=== PATIENT | female | born 1995 | race Caucasian/White ===

== ENCOUNTER 2017-09-22 23:15 | Emergency (ER) | payer SELFPAY ==
[~2017-09-22] VITALS: Ht 167.6 cm; Wt 86.2 kg
[2017-09-22] MEDS ORDERED: AMOX250C PO (23:28)
[2017-09-22] MEDS ORDERED: NS IV 1000 ML 1,000 ML IV SCH (23:28)
[2017-09-22] MEDS ORDERED: PROM5SYR PO (23:28)
[2017-09-22] MEDS ORDERED: ONDANSETRON 4 MG/2 ML (SDV) Z0FRAN IVP ONE (23:30)
[2017-09-22] MEDS ORDERED: FAMOTIDINE 20MG/2ML IV (PEPCID) IVP ONE (23:30)
[2017-09-22] MEDS ORDERED: fentaNYL INJECTION 100 MCG/2 ML AMP IVP ONE (23:30)
[2017-09-22 23:59] LABS: BILIRUBIN,URINE NEGATIVE (NEGATIVE); CLARITY,URINE SLIGHTLY CLOUDY; GLUCOSE, URINE (UA) NEGATIVE (NEGATIVE); KETONES,URINE 2+ (NEGATIVE); LEUKOCYTE ESTERASE ,URINE 2+ (NEGATIVE); NITRITE,URINE NEGATIVE (NEGATIVE); PH,URINE 5 (5-9); PROTEIN,URINE 2+ (NEGATIVE); UROBILINOGEN,URINE NORMAL (NORMAL)
[2017-09-23 00:02] LABS: BASOPHILS % (AUTO) 0 % (0-10); EOSINOPHILS % (AUTO) 0 % (0-10); HEMATOCRIT 49 % (35-52); HEMOGLOBIN 17.5 G/DL (11.5-16.0); LYMPHOCYTES # (AUTO) 0.7 X 10^3 (1.0-4.0); LYMPHOCYTES % (AUTO) 3 % (12-44); MEAN CORPUSCULAR HEMOGLOBIN 31 PG (25-34); MEAN CORPUSCULAR HGB CONC 36 G/DL (32-36); MEAN CORPUSCULAR VOLUME 87 FL (80-99); MEAN PLATELET VOLUME 10.1 FL (7.4-10.4); MONOCYTES % (AUTO) 4 % (0-12); NEUTROPHILS # (AUTO) 20.9 X 10^3 (1.8-7.8); NEUTROPHILS % (AUTO) 93 % (42-75); PLATELET COUNT 304 10^3/uL (130-400); RED BLOOD COUNT 5.62 10^6/uL (4.35-5.85); RED CELL DISTRIBUTION WIDTH 12.9 % (10.0-14.5); WHITE BLOOD COUNT 22.6 10^3/uL (4.3-11.0)
[2017-09-23 00:06] LABS: BACTERIA,URINE LARGE /HPF; COLOR,URINE YELLOW; HYALINE CASTS, URINE RARE /LPF; RBC,URINE RARE /HPF
[2017-09-23] MEDS ORDERED: PROMETHAZINE INJ 25 MG/ML (PHENERGAN) AMP IVP ONE (00:15)
[2017-09-23] MEDS ORDERED: RX-ONDANSETRON 4 MG ODT (ZOFRAN) PPK #4 SL STA (00:16)
[2017-09-23 00:17] LABS: BAND NEUTROPHILS 5 %; BASOPHILS % (MANUAL) 0 %; EOSINOPHILS % (MANUAL) 0 %; LYMPHOCYTES % (MANUAL) 2 %; MONOCYTES % (MANUAL) 3 %; NEUTROPHILS % (MANUAL) 90 %; TOXIC GRANULATION/VACUOLAZATIO 1+
[2017-09-23 00:33] LABS: ALANINE AMINOTRANSFERASE 18 U/L (0-55); ALBUMIN 4.9 GM/DL (3.2-4.5); ALKALINE PHOSPHATASE 89 U/L (40-136); BILIRUBIN,TOTAL 0.8 MG/DL (0.1-1.0); BUN/CREATININE RATIO 18; CALCIUM 10.2 MG/DL (8.5-10.1); CARBON DIOXIDE 19 MMOL/L (21-32); CHLORIDE 106 MMOL/L (98-107); CREATININE SERUM 1.13 MG/DL (0.60-1.30); GFR ESTIMATED > 60; GLUCOSE 139 MG/DL (70-105); LIPASE 5 U/L (8-78); POTASSIUM 4.5 MMOL/L (3.6-5.0); SODIUM 139 MMOL/L (135-145); TOTAL PROTEIN 8.1 GM/DL (6.4-8.2)
--- NOTE | 2017-09-23 00:41 | ED General ---
General Chief Complaint: Abdominal/GI Problems Stated Complaint: VOMITING Nursing Triage Note: nausea/vomitting Nursing Sepsis Screen: No Definite Risk Source of Information: Patient Exam Limitations: No Limitations History of Present Illness Date Seen by Provider: Sep 22, 2017 Time Seen by Provider: 23:24 Initial Comments Patient presents to the emergency room in apparent distress and very dramatic with vomiting and epigastric pain. She reports vomiting 5 hours. She has been afebrile but has had cold sweats. Diarrhea started while in the emergency room. She last tried to eat around 19:30. She has been treated for bronchitis with antibiotics, steroids, and promethazine. Patient is concerned the promethazine caused her symptoms. Allergies and Home Medications Allergies Coded Allergies: No Known Drug Allergies (Unverified , 09/22/17) Patient Home Medication List Home Medication List Reviewed: Yes Constitutional: no symptoms reported EENTM: no symptoms reported Respiratory: see HPI Cardiovascular: no symptoms reported Gastrointestinal: see HPI Genitourinary: no symptoms reported : No Musculoskeletal: no symptoms reported Skin: no symptoms reported Psychiatric/Neurological: No Symptoms Reported Hematologic/Lymphatic: No Symptoms Reported Past Pmvdqps-Pmknwe-Dyrycv Hx Patient Social History Alcohol Use: Denies Use Recreational Drug Use: No Smoking Status: Never a Smoker 2nd Hand Smoke Exposure: Yes Recent Foreign Travel: No Contact w/Someone Who Travel: No Recent Infectious Disease Expo: No Recent Hopitalizations: No Seasonal Allergies Seasonal Allergies: No Surgeries History of Surgeries: Yes (right shoulder) Surgeries: Orthopedic Respiratory History of Respiratory Disorde: No Cardiovascular History of Cardiac Disorders: No Neurological History of Neurological Disord: No Reproductive System : No Genitourinary History of Genitourinary Disor: No Gastrointestinal History of Gastrointestinal Di: No Musculoskeletal History of Musculoskeletal Dis: No Endocrine History of Endocrine Disorders: No HEENT History of HEENT Disorders: No Cancer History of Cancer: No Psychosocial History of Psychiatric Problem: No Integumentary History of Skin or Integumenta: No Blood Transfusions History of Blood Disorders: No Physical Exam Vital Signs Vital Signs - First Documented 09/22/17 23:20 Temp 97.2 Pulse 105 Resp 20 B/P (MAP) 105/73 (84) Pulse Ox 96 O2 Delivery Room Air Capillary Refill : Less Than 3 Seconds General Appearance: WD/WN, Moderate Distress HEENT: PERRL/EOMI, Normal ENT Inspection Neck: Normal Inspection Respiratory: No Accessory Muscle Use, No Respiratory Distress, Wheezing ( subtle wheezing in the bases) Cardiovascular: Regular Rate, Rhythm, No Edema, No Murmur Gastrointestinal: Normal Bowel Sounds, Soft, Tenderness (epigastrium) Extremity: Normal Inspection, No Pedal Edema Neurologic/Psychiatric: Alert, Oriented x3, No Motor/Sensory Deficits, Normal 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, 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 Norm as Tested Skin: Normal Color, Warm/Dry Progress/Results/Core Measures Suspected Sepsis Recent Fever Within 48 Hours: No Infection Criteria Present: None New/Unexplained Altered Menta: No Sepsis Screen: No Definite Risk Sepsis Diagnosis: SIRS Temperature:97.2 Pulse: 105 Respiratory Rate: 20 Laboratory Tests 09/22/17 23:45: White Blood Count 22.6H Blood Pressure 105 /73 Mean: 84 Laboratory Tests 09/22/17 23:45: Creatinine 1.13, Platelet Count 304, Total Bilirubin 0.8 Results/Orders Lab Results Laboratory Tests Test 09/22/17 23:45 Range/Units White Blood Count 22.6 H 4.3-11.0 10^3/uL Red Blood Count 5.62 4.35-5.85 10^6/uL Hemoglobin 17.5 H 11.5-16.0 G/DL Hematocrit 49 35-52 % Mean Corpuscular Volume 87 80-99 FL Mean Corpuscular Hemoglobin 31 25-34 PG Mean Corpuscular Hemoglobin Concent 36 32-36 G/DL Red Cell Distribution Width 12.9 10.0-14.5 % Platelet Count 304 130-400 10^3/uL Mean Platelet Volume 10.1 7.4-10.4 FL Neutrophils (%) (Auto) 93 H 42-75 % Lymphocytes (%) (Auto) 3 L 12-44 % Monocytes (%) (Auto) 4 0-12 % Eosinophils (%) (Auto) 0 0-10 % Basophils (%) (Auto) 0 0-10 % Neutrophils # (Auto) 20.9 H 1.8-7.8 X 10^3 Lymphocytes # (Auto) 0.7 L 1.0-4.0 X 10^3 Monocytes # (Auto) 1.0 0.0-1.0 X 10^3 Eosinophils # (Auto) 0.0 0.0-0.3 10^3/uL Basophils # (Auto) 0.0 0.0-0.1 10^3/uL Neutrophils % (Manual) 90 % Lymphocytes % (Manual) 2 % Monocytes % (Manual) 3 % Eosinophils % (Manual) 0 % Basophils % (Manual) 0 % Band Neutrophils 5 % Toxic Granulation 1+ Urine Color YELLOW Urine Clarity SLIGHTLY CLOUDY Urine pH 5 5-9 Urine Specific [place] 1.030 H 1.016-1.022 Urine Protein 2+ H NEGATIVE Urine Glucose (UA) NEGATIVE NEGATIVE Urine Ketones 2+ H NEGATIVE Urine Nitrite NEGATIVE NEGATIVE Urine Bilirubin NEGATIVE NEGATIVE Urine Urobilinogen NORMAL NORMAL MG/DL Urine Leukocyte Esterase 2+ H NEGATIVE Urine RBC (Auto) 2+ H NEGATIVE Urine RBC RARE /HPF Urine WBC 5-10 H /HPF Urine Squamous Epithelial Cells 10-25 H /HPF Urine Crystals NONE /LPF Urine Bacteria LARGE H /HPF Urine Casts PRESENT /LPF Urine Hyaline Casts RARE /LPF Urine Mucus MODERATE H /LPF Urine Culture Indicated YES Sodium Level 139 135-145 MMOL/L Potassium Level 4.5 3.6-5.0 MMOL/L Chloride Level 106 98-107 MMOL/L Carbon Dioxide Level 19 L 21-32 MMOL/L Anion Gap 14 5-14 MMOL/L Blood Urea Nitrogen 20 H 7-18 MG/DL Creatinine 1.13 0.60-1.30 MG/DL Estimat Glomerular Filtration Rate > 60 BUN/Creatinine Ratio 18 Glucose Level 139 H 70-105 MG/DL Calcium Level 10.2 H 8.5-10.1 MG/DL Total Bilirubin 0.8 0.1-1.0 MG/DL Aspartate Amino Transf (AST/SGOT) 18 5-34 U/L Alanine Aminotransferase (ALT/SGPT) 18 0-55 U/L Alkaline Phosphatase 89 40-136 U/L Total Protein 8.1 6.4-8.2 GM/DL Albumin 4.9 H 3.2-4.5 GM/DL Lipase 5 L 8-78 U/L Serum Test, Qualitative NEGATIVE NEGATIVE My Orders Orders - JOSE ANTONIO BOSS MD Cbc With Automated Diff (09/22/17 23:26) Comprehensive Metabolic Panel (09/22/17 23:26) Hcg,Qualitative Serum (09/22/17 23:26) Lipase (09/22/17 23:26) Ua Culture If Indicated (09/22/17 23:26) Saline Lock/Iv-Start (09/22/17 23:26) Ondansetron Injection (Zofran Injectio (09/22/17 23:30) Saline Lock/Iv-Start (09/22/17 23:28) Ns Iv 1000 Ml (Sodium Chloride 0.9%) (09/22/17 23:28) Fentanyl Injection (Sublimaze Injection (09/22/17 23:30) Famotidine Injection (Pepcid Injection) (09/22/17 23:30) Manual Differential (09/22/17 23:45) Urine Culture (09/22/17 23:45) Promethazine Injection (Phenergan Injec (09/23/17 00:15) Rx-Ondansetron Po (Rx-Zofran Po) (09/23/17 00:16) Medications Given in ED Current Medications Medications Dose Ordered Sig/Jennifer Route Start Time Stop Time Status Last Admin Dose Admin Famotidine 20 mg ONCE ONCE IVP 09/22/17 23:30 09/22/17 23:32 DC 09/22/17 23:41 20 MG Fentanyl Citrate 75 mcg ONCE ONCE IVP 09/22/17 23:30 09/22/17 23:32 DC 09/22/17 23:41 75 MCG Ondansetron HCl 8 mg ONCE ONCE IVP 09/22/17 23:30 09/22/17 23:32 DC 09/22/17 23:41 8 MG Vital Signs/I&O Vital Sign - Last 12Hours 09/22/17 09/22/17 09/23/17 23:20 23:41 00:54 Temp 97.2 97.2 97.8 Pulse 105 90 Resp 20 20 B/P (MAP) 105/73 (84) 105/73 (84) Pulse Ox 96 98 O2 Delivery Room Air Room Air Capillary Refill : Less Than 3 Seconds Blood Pressure Mean: 84 Progress Note : Progress Note Patient's vomiting resolved with Zofran. A liter of IV fluids was administered. Leukocytosis noted on labs likely is related to the high-dose steroids she started today. Patient declined her pain medication. She was tolerating oral water prior to dismissal. A contaminated urine specimen suggested urinary tract infection. She was encouraged to continue her amoxicillin. She is advised to hold steroids while she has stomach upset. She wanted something to help her sleep. Since she is afraid to continue promethazine, I suggested taking Benadryl. Departure Impression Impression: Primary Impression: Nausea vomiting and diarrhea Disposition: HOME, SELF-CARE Condition: Improved Departure-Patient Inst. Decision time for Depature: 00:39 Referrals: NO,LOCAL PHYSICIAN (PCP) Primary Care Physician Patient Instructions: Nausea and Vomiting, Adult Add. Discharge Instructions: Your nausea, vomiting, and diarrhea are likely due to a viral gastroenteritis. Dissolve Zofran (ondansetron) under the tongue every 4 hours as needed for nausea and vomiting. You may take Imodium or similar product [id number] for diarrhea. Start with a clear liquid diet and gradually advance your diet with small quantities of bland food as tolerated. I suggest stopping your steroids as they may make your stomach upset worse. Complete your antibiotics as prescribed. You have a suggestion of urinary tract infection on your urine sample. Follow-up with your primary care provider on Tuesday to review urine culture results which will ensure the antibiotic you are taking his appropriate for the type of infection you have. Return to care if symptoms worsen. You may use Benadryl (diphenhydramine) up to 50 mg every 4 hours as needed to help you sleep. All discharge instructions reviewed with patient and/or family. Voiced understanding. JOSE ANTONIO BOSS MD Sep 23, 2017 00:41
[2017-09-23 00:54] VITALS: BP 105/73
== END 2017-09-23 00:51 | disposition home or self-care (01) ==
LOC: ER 23:19
DX: R11.2 Nausea with vomiting, unspecified (principal); R19.7 Diarrhea, unspecified; Z77.22 Contact with and (suspected) exposure to environmental tobacco smoke (acute) (chronic); Z87.09 Personal history of other diseases of the respiratory system; Z79.52 Long term (current) use of systemic steroids
CPT/HCPCS: 36415; 80053; 81000; 83690; 84703; 85007; 85027; 87088; 96361; 96374; 96375